=== PATIENT | male | born 1990 | race Asian ===

== ENCOUNTER 2017-10-17 09:55 | Observation (INO) | payer OTHER ==
--- NOTE | 2017-10-17 10:13 | EDPHY ---
H & P Stated Complaint: Injury RLE;sent from Time Seen by Provider: 10/17/17 10:13 HPI/ROS: CHIEF COMPLAINT: Right lower extremity injury HISTORY OF PRESENT ILLNESS: The patient presents to the ED for evaluation of right ankle pain and swelling as a result of a fall last night. The patient was seen at urgent care and diagnosed with a fracture. He was placed in a splint and sent here for further evaluation. The patient reports he last ate at 7 o'clock this morning. The patient denies any acute numbness or weakness. The patient denies additional injury. The patient denies significant past medical history. REVIEW OF SYSTEMS: A comprehensive 10 point review of systems is otherwise negative aside from elements mentioned in the history of present illness. Source: Patient Exam Limitations: No limitations - Personal History Current Tetanus Diphtheria and Acellular Pertussis (TDAP): Yes - Medical/Surgical History Other PMH: Past medical history: Noncontributory - Social History Smoking Status: Never smoked - Physical Exam Exam: General Appearance: Alert, no distress Eyes: Pupils equal and round no pallor or injection ENT, Mouth: Mucous membranes moist Respiratory: There are no retractions, lungs are clear to auscultation Cardiovascular: Regular rate and rhythm Gastrointestinal: Abdomen is soft and nontender, no masses, bowel sounds normal Neurological: GCS 15, intact motor function and sensory exam noted to the right lower extremity Skin: Mild ecchymosis, no obvious laceration Musculoskeletal: Neck is supple nontender Extremities: Tenderness, mild soft tissue swelling noted to the medial and lateral distal tib-fib area Constitutional: Initial Vital Signs Temperature (C) 36.9 C 10/17/17 09:58 Heart Rate 88 10/17/17 09:58 Respiratory Rate 16 10/17/17 09:58 Blood Pressure 127/82 H 10/17/17 09:58 O2 Sat (%) 96 10/17/17 09:58 O2 Delivery Mode Room Air Allergies/Adverse Reactions: No Known Allergies Allergy (Unverified 10/17/17 10:11) Home Medications: Medication Instructions Recorded NK [No Known Home Meds] 10/17/17 Medical Decision Making - Diagnostics Imaging Results: Imaging Impressions Ankle X-Ray 10/17/17 11:11 Impression: 1. Improved positioning of a spiral distal tibial diaphyseal fracture with one half shaft width residual lateral displacement and mild medial angulation. 2. Improved positioning of a mildly displaced distal fibular diametaphyseal fracture. 3. Stable nondisplaced posterior malleolar fracture. Right ankle x-ray: Images reviewed by myself, comminuted, displaced distal tib- fib fracture. ED Course/Re-evaluation: The patient presents to the ED with a displaced, spiral, distal tib-fib fracture without evidence of joint involvement. The patient arrives in a ortho glass splint from urgent care. The patient had an IV established. He received 2 L of normal saline and a total of 1 mg of Dilaudid. I consulted with the on-call orthopedic surgeon Dr. Lomeli. We did review his films. The patient ate breakfast at 7 o'clock this morning. He will be admitted to the hospital in anticipation of ORIF this evening. The patient was re-evaluated at 12:00 p.m. and is currently reporting his pain is adequately controlled. He is transferred to the med surg floor awaiting surgery. He will be admitted to the Orthopedic surgery service this evening. Differential Diagnosis: Differential diagnosis considered includes fracture, sprain, dislocation - Data Points Laboratory Results: Laboratory Results 10/17/17 10:30 10/17/17 10:30 10/17/17 10/17/17 10:30 10:30 WBC 10.27 10^3/uL H 10^3/uL (3.80-9.50) RBC 4.54 10^6/uL 10^6/uL (4.40-6.38) Hgb 14.7 g/dL g/dL (13.7-17.5) Hct 41.7 % % (40.0-51.0) MCV 91.9 fL fL (81.5-99.8) MCH 32.4 pg pg (27.9-34.1) MCHC 35.3 g/dL g/dL (32.4-36.7) RDW 11.9 % % (11.5-15.2) Plt Count 227 10^3/uL 10^3/uL (150-400) MPV 10.6 fL fL (8.7-11.7) Neut % (Auto) 78.5 % H % (39.3-74.2) Lymph % (Auto) 12.6 % L % (15.0-45.0) Beadle % (Auto) 8.4 % % (4.5-13.0) Eos % (Auto) 0.0 % L % (0.6-7.6) Baso % (Auto) 0.2 % L % (0.3-1.7) Nucleat RBC Rel Count 0.0 % % (0.0-0.2) Absolute Neuts (auto) 8.07 10^3/uL H 10^3/uL (1.70-6.50) Absolute Lymphs (auto) 1.29 10^3/uL 10^3/uL (1.00-3.00) Absolute Monos (auto) 0.86 10^3/uL H 10^3/uL (0.30-0.80) Absolute Eos (auto) 0.00 10^3/uL L 10^3/uL (0.03-0.40) Absolute Basos (auto) 0.02 10^3/uL 10^3/uL (0.02-0.10) Absolute Nucleated RBC 0.00 10^3/uL 10^3/uL (0-0.01) Immature Gran % 0.3 % % (0.0-1.1) Immature Gran # 0.03 10^3/uL 10^3/uL (0.00-0.10) Sodium 138 mEq/L mEq/L (135-145) Potassium 4.4 mEq/L mEq/L (3.5-5.2) Chloride 102 mEq/L mEq/L (97-110) Carbon Dioxide 21 mEq/l L mEq/l (22-31) Anion Gap 15 mEq/L mEq/L (8-16) BUN 10 mg/dL mg/dL (7-23) Creatinine 1.0 mg/dL mg/dL (0.7-1.3) Estimated GFR > 60 Glucose 98 mg/dL mg/dL (70-100) Calcium 10.0 mg/dL mg/dL (8.5-10.4) Medications Given: Discontinued Medications Hydromorphone HCl (Dilaudid) 0.5 mg IVP EDNOW ONE Stop: 10/17/17 10:33 Last Admin: 10/17/17 10:46 Dose: Not Given Hydromorphone HCl (Dilaudid) 0.5 mg IVP EDNOW ONE Stop: 02/24/18 10:46 Last Admin: 10/17/17 10:45 Dose: 0.5 mg Sodium Chloride (Ns) 1,000 mls @ 0 mls/hr IV EDNOW ONE; Wide Open PRN Reason: Protocol Stop: 10/17/17 10:33 Last Admin: 10/17/17 10:45 Dose: 1,000 mls Departure - Departure Disposition: [facility] In[facility] Acute Clinical Impression: Fracture of distal end of tibia Qualifiers: Encounter type: initial encounter Fracture type: closed Fracture morphology: other fracture Laterality: right Qualified Code(s): S82.391A - Other fracture of lower end of right tibia, initial encounter for closed fracture Fracture of distal fibula Qualifiers: Encounter type: initial encounter Fracture type: closed Fracture morphology: other fracture Laterality: right Qualified Code(s): S82.831A - Other fracture of upper and lower end of right fibula, initial encounter for closed fracture Condition: Good
[2017-10-17] MEDS ORDERED: HYDROmorphONE/DILAUDID 1 MG/ML INJ IVP ONE (10:32)
[2017-10-17] MEDS ORDERED: NS 1,000 ML IV ONE (10:32)
[2017-10-17] MEDS ORDERED: HYDROmorphONE/DILAUDID 2 MG/ML INJ IVP ONE (10:45)
[2017-10-17 11:49] LABS: PLATELET COUNT 227 10^3/uL (150-400)
[2017-10-17] MEDS ORDERED: ceFAZolin 2 GM/SWFI 2 GM/20 ML SYR IVP ONE (12:23)
[2017-10-17 13:00] LABS: INR 1.07 (0.83-1.16); PROTIME(PATIENT) 14.1 SEC (12.0-15.0)
--- NOTE | 2017-10-17 13:14 | GHP ---
[f rep st] PREOP HISTORY AND PHYSICAL DATE OF ADMISSION: 10/17/2017 CHIEF COMPLAINT: This 27-year-old male presents to the emergency department this morning with a right lower leg pain. HISTORY OF PRESENT ILLNESS: The patient states that he was walking on some ice near his apartment in [place] last night when he slipped forcefully, twisting his right lower leg. He was able to get inside and fall asleep, but did have a restless night of sleep due to pain. When he woke up this morning, it became apparent that there was a bit of a deformity to the lower leg, so a friend brought him to the emergency department this morning, where he presented for evaluation. The patient stated that in the emergency department, prior to pain medication being given, he was having some tingling of the toes, but described it as more of a throbbing, but this has since subsided after the pain medication was given. He did not have any other episodes of numbness or tingling of the toes. He denies any other joint pain or injury as a result of the fall. He did not hit his head and does not have any neck pain. The patient states that he last ate breakfast this morning at 7 o'clock, which consisted of some water and a breakfast burrito. PAST MEDICAL HISTORY: The patient states that he is otherwise healthy and denies any medical problems. PAST SURGICAL HISTORY: The patient has had no prior surgeries. MEDICATIONS: The patient takes a multivitamin daily. No other supplements or medications are taken. ALLERGIES: Patient has no known drug allergies. SOCIAL HISTORY: The patient lives in [place]. He is a nonsmoker. His sister lives in [place]. His parents travel regularly between the and [facility], and are currently in [place]. FAMILY HISTORY: The patient reports that both parents are very healthy. He states that he has a grandmother that may have had diabetes, but he is not sure. Otherwise, his family history is negative for any sort of clotting disorder or anesthesia reaction. REVIEW OF SYSTEMS: Patient denies any recent fevers, sweats, chills, headaches , congestion, coughing, shortness of breath, chest pain, abdominal pain, rashes , abrasions, lacerations, or any recent illnesses. Review of systems is otherwise negative except as mentioned above. PHYSICAL EXAM: GENERAL: Patient is alert, calm, cooperative, resting comfortably. No acute distress. Answering questions appropriately. VITAL SIGNS: Stable. HEENT: The patient's head is atraumatic and normocephalic. Extraocular movements are intact. Pupils are equal, round, reactive to light. Nares are patent. Hearing is grossly normal. Oral mucosa are moist. LUNGS: Respirations are easy and nonlabored. CARDIOVASCULAR: Distally, the patient has brisk and equal pulses in both upper and lower extremities bilaterally. He has brisk capillary refill in both upper and lower extremities as well. No upper or lower extremity edema is present throughout. GASTROINTESTINAL: The patient's abdomen is soft, nontender, with no masses, rigidity, or guarding present. NEUROLOGIC: Distally the patient's sensation is intact to both upper and lower extremities. He can move all digits without difficulty. SKIN: No rashes, lesions, abrasions, ecchymosis, warmth, redness or swelling is noted other than at the site of the injury. MUSCULOSKELETAL: Examination of the right lower leg does reveal some ecchymosis and swelling over the right lower leg just proximal to and around the ankle. There is no break in the skin and no tenting present. The patient does have tenderness to palpation at the distal tibia and fibula, which does extend into the ankle, but somewhat less than over the maximal area of swelling. Compartments are soft, no pain with active or passive stretch. The remainder of the musculoskeletal exam, including full left lower extremity and bilateral upper extremity musculoskeletal exam, is negative for any pain, swelling, or limits in range of motion. NECK: The patient has no cervical spine tenderness, step-off, deformities, or pain to palpate. He has full range of motion of the neck. Lhermitte's test is negative. Psych: A+Ox3. Appropriate mood and affect. DIAGNOSTIC DATA: X-rays of the right ankle and lower leg show a comminuted, displaced spiral distal tibial shaft fracture. There is a separate non- minimally displaced posterior malleolus fracture, and a comminuted Owusu B distal fibula fracture with significant displacement and angulation. IMPRESSION: Closed R distal tibia shaft fracture, and ankle fractures including a comminuted distal fibula fracture and posterior malleolus fracture. PLAN: The patient was placed in an Orthoglass splint in the emergency department, which he will remain in until he goes to the operating room at 3 o' clock this afternoon. The patient's preop history and physical was completed at the bedside by myself, and by Dr Lomeli. A signed and witnessed informed consent was obtained by Dr Lomeli, for surgical fixation of these multiple, unstable fractures. Pre-op labs and ankle/knee XRs pending. Bedrest, NWB RLE, ice and elevation, position of comfort. Keep NPO for surgery ASHVIN this afternoon. Please call with any questions. /[id number]/MODL MTDD
--- NOTE | 2017-10-17 13:15 | SOAPPROG ---
SOAP Progress Note Assessment/Plan: Assessment: 27M healthy, active w/ no medical comorbidities s/p fall on ice with closed RLE fractures, including distal tibial shaft and ankle fractures. Currently no sign of NV deficit or comp syndrome. NPO since 7am, therefore OK for surgery at 3pm. He is currently on the OR schedule for 3:15pm. Plan: OR as planned. Keep NPO. Cont splint RLE, ice/elevation, and strict NWB. Position of comfort. See full dictated consult by my PA, Hayde Larose for add'l information. 10/17/17 13:15 Subjective: 27yo M s/p slip and fall on ice yesterday. He is unable to bear weight and c/o pain, deformity and swelling RLE. No numb/tingling or other c/os. Denies any other injuries. Objective: Vital Signs Temp Pulse Resp BP Pulse Ox 36.9 C 85 16 155/95 H 95 10/17/17 12:22 10/17/17 12:22 10/17/17 12:22 10/17/17 12:22 10/17/17 12:22 10/16/17 10/17/17 10/18/17 05:59 05:59 05:59 Intake Total 1000 Balance 1000 PT 14.1 SEC (12.0-15.0) 10/17/17 12:40 INR 1.07 (0.83-1.16) 10/17/17 12:40 RLE edema, calor and ecchymosis, no erythema. Skin intact. Comp's soft, no pain with passive/active stretch. DNVI BLE's. No calf TTP, Osorio's unable to be performed. XRs: R tibial shaft spiral fx, distal 1/3 with significant displacement and angulation. R ankle fractures including displaced distal fibula and minimally displacd posterior malleolus of tibia. ICD10 Worksheet Patient Problems: Problems Problem Status Onset Fracture of distal end of tibia Acute Fracture of distal fibula Acute
--- NOTE | 2017-10-17 14:17 | ASMTCMCOM ---
CM Note CM Note Notes: Chart reviewed. 27 year old male admitted via ed for tib/fib fracture. OR this pm. Needs TBD. CM to follow. Date Signed: 10/17/2017 02:16 PM Electronically Signed By:Litzy Duran RN
[2017-10-17] MEDS ORDERED: fentaNYL 100 MCG/2 ML INJ ONE ×5 (14:51→19:48)
[2017-10-17] MEDS ORDERED: BUPIVACAINE/EPI 0.5% 30 ML SDV ONE ×2 (14:52→18:30)
--- NOTE | 2017-10-17 14:54 | PDANEPAE ---
ANE Past Medical History - Pulmonary History Hx Oxygen in Use at Home: No Hx Sleep Apnea: No Sleep Apnea Screening Result - Last Documented: Negative - Endocrine History Hx Diabetes: No ANE Review of Systems Review of Systems: ANE Patient History - Allergies Allergies/Adverse Reactions: No Known Allergies Allergy (Unverified 10/17/17 10:11) - Home Medications Home Medications: NK [No Known Home Meds] 10/17/17 [Last Taken Unknown] - NPO status NPO Since - Liquids (Date): 10/17/17 NPO Since - Liquids (Time): 07:00 NPO Since - Solids (Date): 10/17/17 NPO Since - Solids (Time): 12:23 - Smoking Hx Smoking Status: Never smoked TIA Labs/Vital Signs - Labs Result Diagrams: 10/17/17 10:30 10/17/17 10:30 - Vital Signs Blood Pressure: 155/95 Heart Rate: 85 Respiratory Rate: 16 O2 Sat (%): 95 Height: 182.88 cm Weight: 68.039 kg TIA Physical Exam - Airway Mallampati Score: Class 2 - ASA Status ASA Status: I ANE Anesthesia Plan Anesthesia Plan: GA w LMA
[2017-10-17] MEDS ORDERED: fentaNYL 100 MCG/2 ML INJ IVP ONE (14:55)
[2017-10-17] MEDS ORDERED: PROPOFOL 200 MG/20 ML VIAL ONE (15:05)
[2017-10-17] MEDS ORDERED: MIDAZOLAM 2 MG/2 ML VIAL ONE (15:05)
[2017-10-17] MEDS ORDERED: LIDOCAINE 2% JELLY 5 ML TUBE ONE (15:06)
[2017-10-17] MEDS ORDERED: METOCLOPRAMIDE 10 MG/2 ML VIAL ONE (15:06)
[2017-10-17] MEDS ORDERED: ONDANSETRON 4 MG/2 ML VIAL ONE ×2 (15:06→19:08)
[2017-10-17] MEDS ORDERED: HYDROGEN PEROXIDE 236 ML BOTTLE TP ONE (17:26)
[2017-10-17] MEDS ORDERED: LR 500 ML IV PRN (18:52)
[2017-10-17] MEDS ORDERED: fentaNYL 100 MCG/2 ML INJ IVP PRN (18:52)
[2017-10-17] MEDS ORDERED: NALOXONE HCL 0.4 MG/ML INJ IVP PRN (18:52)
[2017-10-17] MEDS ORDERED: HYDROmorphONE/DILAUDID 1 MG/ML INJ IVP PRN (18:52)
--- NOTE | 2017-10-17 18:53 | POSTANESTH ---
Post Anesthetic Evaluation Cardiovascular Status: Normal, Stable Respiratory Status: Normal, Stable Level of Consciousness/Mental Status: Can Participate in Eval Pain Control: Adequate, Prn Tx Ordered Nausea/Vomiting Control: Adequate, Prn Tx Ordered Complications Possibly Related to Anesthesia: None Noted
[2017-10-17] MEDS ORDERED: ACETAMINOPHEN 325 MG TAB PO PRN (19:00)
--- NOTE | 2017-10-17 19:23 | POSTOPPROG ---
Post Op Note Date of Operation: 10/17/17 Surgeon: Freeman Lomeli [employer] Manager: Hayde Larose Anesthesia: GET(General Endotracheal) Pre-op Diagnosis: Right Tibia and Fibula fractures-displaced Post-op Diagnosis: Right tibia and Fibula fractures-displaced Indication: unstable fractures Procedure: ORIF Right ankle fracture, IM Nail Right Tibia fracture Inf/Abcess present in the surg proc area at time of surgery?: No Depth: Deep Incisional (Fascial) EBL: 50-100 Complications: None
[2017-10-17] MEDS ORDERED: ONDANSETRON 4 MG/2 ML VIAL IVP ONE (19:30)
[2017-10-17] MEDS ORDERED: HYDROmorphONE/DILAUDID 2 MG/ML INJ ONE (19:49)
--- NOTE | 2017-10-17 20:10 | GOP ---
[f rep st] OPERATIVE REPORT DATE OF OPERATION: 10/17/2017 SURGEON: Freeman Lomeli MD CABLE BRAIDER: FRIEDA Lyles. ANESTHESIA: General. ANESTHESIOLOGIST: Dr. Bernstein. PREOPERATIVE DIAGNOSIS: 1. Closed right distal tibial shaft fracture. 2. Closed right ankle fractures, including posterior malleolus and distal fibula with comminution. POSTOPERATIVE DIAGNOSIS: 1. Closed right distal tibial shaft fracture. 2. Closed right ankle fractures, including posterior malleolus and distal fibula with significant comminution. 3. Closed right ankle anterior syndesmosis bony avulsion injury. PROCEDURE PERFORMED: 1. Right tibial shaft fracture reduction and surgical stabilization with intramedullary nail. 2. Open reduction, internal fixation of right ankle fractures, including posterior malleolus and distal fibula. 3. Open reduction and internal fixation with repair of right ankle anterior syndesmotic avulsion injury. FINDINGS: Long spiral and oblique fracture of the right distal tibial shaft, distal third. There was a nondisplaced posterior malleolus fracture that involved approximately 20% to 25% of the articular surface. Medial malleolus was intact. There was a highly comminuted right distal fibular, Owusu B fracture. The fibula fracture included avulsion of the anterior syndesmotic insertion point, dimensions of bony segment were 1 x 1 x 1.5 cm and syndesmotic ligaments were intact upon this segment. SPECIMENS: None. ESTIMATED BLOOD LOSS: 100 cc. INDICATIONS: This is a 27-year-old active male who apparently attempted to jump across a puddle and landed on ice resulting in a heavy twisting injury to his right leg and ankle. This occurred on October 16. The patient apparently waited overnight, eventually presented to an Urgent Care, and was then transferred to [facility] ER for multiple fractures of the right lower extremity. The risks, benefits, and alternatives to surgery were discussed with the patient. He understood that I recommended surgical fixation. He provided a signed and witnessed informed consent which was placed in his chart. Please see history and physical for additional information. All of his questions were answered prior to surgery. DESCRIPTION OF PROCEDURE: Patient was identified in the preop holding area, and his right lower extremity was signed and designated as the operative site. The patient was confirmed, and left lower extremity ALVIN hose and SCDs. He was taken back to the operating room and treated with 2 g IV prophylactic cefazolin. The patient underwent general anesthesia. Once his airway was stabilized, both arms were placed on well-padded arm boards. Left lower extremity was wrapped at the level of the proximal fibula, and heel and ankle with foam eggcrate padding. Right lower extremity was wrapped proximally with cast padding and a nonsterile tourniquet, and then prepped and draped in the usual sterile manner. The large C-arm was also prepped and draped in the usual sterile manner for use during surgery. Bone foam and bumps were placed under the right hip and right lower extremity, and placed beneath the drapes for positioning of the right leg for this surgery. Initial focus was on the gdx-mj-omqqwfvvn displaced posterior malleolus fracture. An bdemyjbp-ft-gfrudnlrg screw was considered necessary given that would be reaming down into this area, and I was worried about potentially displacing the posterior malleolar fragment. As a result, a small 1.5 cm incision was placed just medial to the tibialis anterior tendon. A full- thickness dermal incision was made with a #15 blade, and careful dissection was taken down through the subcutaneous tissues. The tendon was retracted medially. The anterior cortex of the distal tibia was identified. Using the C- arm with orthogonal views, a clamp was placed vpahrwwy-wx-lnuxqkcdi. A small stab incision was placed just medial to the Achilles tendon. Again, careful dissection and spreading were utilized down along the medial aspect of the Achilles tendon and directly down to the posterior aspect of the distal tibia. The clamp was placed down on bone through the spread tissues with the hemostat posteriorly, and then was advanced anteriorly down on the anterior aspect of the distal tibia just superior to the eventual drill point. Clamp was confirmed in the appropriate position, and with gentle torque on the clamp, an anatomic reduction was achieved on both AP and lateral views. With this in place, provisional fixation of single anteroposterior screw was then placed to fixate the posterior segment. Using a 2.5 mm drill, the start point was started somewhat medial and then advanced posteriorly and centrally. In this manner, I would be able to avoid the area of reaming and eventual nail placement. The drill hole was then overdrilled with a 3.5 mm drill out to approximately the depth of the fracture line. A standard fully-threaded cortical screw was then placed across the fracture site with very nice compression using standard AO technique. Once this was completed, the wound was irrigated with saline. The tibial nailing was performed via a suprapatellar approach. The knee was stably situated on the bone foam and with bumps, and appropriate imaging was confirmed with the large C-arm. Start point was found over the quad tendon just proximal to the patella, and a 3 cm incision was placed through the skin with a #10 blade. Careful dissection was taken down through the subcutaneous fat, and the quad tendon was identified. A new, fresh 10-blade was then used to divide the quad tendon in parallel with its fibers. This was made in a full- thickness manner. My finger was then used to bluntly dissect down into the joint, and the patella was found to be mobile and appropriate for this procedure. Using standard Synthes technique, the soft rubberized cannula was placed down across the patellofemoral joint, and the start point was accessed via standard suprapatellar technique. Both AP and lateral imaging was confirmed that the guidewire would be placed directly along the anterosuperior margin of the tibia on lateral view and along the medial aspect of the lateral tibial eminence. This guidewire was then placed down to the appropriate depth, and then was overdrilled through the cannula with the standard starter drill/ reamer. The guidewire and drill removed. The standard guidewire was then placed through the cannula, and via the suprapatellar pouch with a small distal tip bend, it was advanced down within the intramedullary canal. At the fracture site, I utilized my offset press assistant in order to maintain a reduction performed by me using closed technique, including rotation, bending, and traction. The guidewire was passed across the fracture and advanced down into the distal tibial plafond to the appropriate center-center position. Again, great care was taken to avoid any displacement of the posterior malleolus fracture. Reaming was then performed using standard technique through the cannula. Great care was taken to ensure that the cannula was maintained in place, i.e., past the articular portions of the knee and kept flush down to the tibial entry point. The reamers were sequentially increased to a total diameter of 12 mm when appropriate chatter was obtained. A 345 mm x 11 mm standard tibial nail from the Synthes set was then advanced across the knee joint down into the tibial canal and across the fracture site. Excellent anatomic reduction was achieved at the fracture site. It was malleted down to the appropriate depth, and then 2 distal interlocks from medial to lateral approach were placed. Each of these were placed using standard perfect gambell technique. Both interlocks were placed with excellent bicortical engagement. Once this was placed in position, I was simply able to with minimal traction on the distal segment, anatomically reduce and get excellent apposition at the fracture site. At this point, the nail was found to be ideal proximally, and therefore the 2 proximal interlock screws were again placed in a mediolateral manner using the standard jig. Once all interlocks were completed, finalized images were taken to assure appropriate hardware positioning. The most proximal interlock is a dynamic screw, and the distal proximal screw is a static screw. Both distal screws were static. Once this was completed, the jig and equipment were removed. A 5 mm cap was then placed in the proximal aspect of the nail using standard technique and cannulation device. This was tightened in the appropriate position. Once this was completed, all wounds were copiously irrigated with sterile saline, and my attention was then focused on the ankle. With direct palpation of the ankle, fracture site was found to be grossly unstable with significant crepitation. With external rotation stress view on mortise, the mortise opened, and the fracture displaced more significantly. The talus was notable for displacing laterally. As a result, ORIF of the fibula was then performed. Esmarch exsanguination was used to inflate the tourniquet to 250 mmHg. A standard lateral approach to the fibula was utilized. An 8 cm incision was placed directly over the lateral aspect of the fibula from the distal tip proximally. Over the distal 4 cm, full-thickness skin flaps were created down to bone. Proximally, careful dissection was used with the Metzenbaum scissors in order to assure no damage to the superficial peroneal nerve. The lateral aspect of the tibia was identified. There was a large segmental portion of the fracture anteriorly that was displaced within the soft tissues anterior in the anterior compartment. This was grasped and retracted posteriorly, and found to be the bony attachment site of the anterior syndesmosis. This was therefore irrigated and cleared of all soft tissues at the cancellous side of this fracture. The primary fracture section of the fracture was then debrided of all soft tissues, and retractors were placed. A dbuhi-wb-gdjfg reduction tenaculum was used to reduce the fracture and hold it in an appropriate position provisionally. An oqntrylw-yf-xyhfdmlbv oblique AO compression screw using standard interfragmentary compression technique was then placed across the fracture site. Next, a neutralization 7-hole, 1/3 tubular plate was placed laterally. Only 2 screws were able to be placed distally due to the distal nature of the fracture and comminution within the zone of injury. Proximally, 3 bicortical screws were placed. Both distal screws were cancellous. Excellent fixation was achieved throughout with this patient's excellent young bone. Finally, the anterior bony avulsion site of the syndesmosis was carefully reduced down into its kaibab site. Two #1 Vicryl sutures were placed around the fracture segment with great care taken to place the suture directly over bone and in a subperiosteal manner. The more inferior suture was placed through the zone of comminution, and within one of the empty screw holes, the more proximal suture lasso was prepped placed entirely around the fibula with great care taken to maintain the tip of the needle on bone as it was passed around the fibula. With the sutures in place, the exraz-qp-xrayn reduction tenaculum was then used to reduce the fracture segment down into its anatomic site. With this segment compressed, both cerclage sutures were then tied by me and cut at the level of knot. An appropriate reduction and/or fixation was achieved at the level of this bony avulsion site. Once the work was completed at the fibula, the wound was copiously irrigated with sterile saline. Closure was now begun throughout the lower extremity. The quad tendon was closed with multiple 0 Vicryl sutures in a quzk-ib-evzv manner. The deep fat space was closed with multiple 2-0 Vicryl sutures. 2-0 Vicryl deep dermal sutures were used to reapproximate the skin, and then ernst were used to close the skin. All the percutaneous incisions were closed with ernst only. The kgxyukhz-iz-dylxzvrry distal tibial screw incision site was also closed with 3-0 Monocryl in a deep dermal manner, and then ernst. The lateral ankle incision was closed with multiple 2-0 Vicryl sutures at the level of the periosteal layer. Deep dermal layer was closed with 3-0 Monocryl. The skin was then formally closed with ernst. Tourniquet was dropped prior to closure of the skin. Excellent hemostasis was confirmed throughout. Sterile postoperative surgical dressings were applied throughout the wounds after anesthetizing all the wounds at the level of the skin with local anesthetic. An Omari bandage was wrapped from the toes to the mid thigh. The right lower extremity was placed in a CAM walker boot. The anesthesia service took over to wake the patient up. TOURNIQUET TIME: 48 minutes at 250 mmHg. DRAINS: None. IMPLANTS: Synthes EX intramedullary nail via suprapatellar approach. Nail dimensions 11 mm x 345 mm. Two distal static interlock screws. Two proximal interlock screws with the more proximal in a dynamic position, more distal in a static position. Synthes small fragment 7-hole, 1/3 tubular plate with 5 small frag screws placed through the plate as well as an dfuadoal-jr-pjnzbzyjd additional 6th screw in an AO interfragmentary compression manner. There was an additional 3.5 screw placed in fmbfjdhe-cy-yxpgctout direction within the distal tibia at the level of the articular surface, fixing the posterior malleolus fracture via AO compression technique. COMPLICATIONS: None. DISPOSITION: The patient was extubated and transferred to PACU in stable condition. /[id number]/MODL MTDD
[2017-10-17] MEDS ORDERED: ceFAZolin 2 GM/DEXTROSE 100 ML IV SCH (22:00)
[2017-10-17] MEDS ORDERED: ceFAZolin 2 GM/SWFI 2 GM/20 ML SYR IVP SCH (23:30)
[2017-10-17] MEDS: OXYCODONE/APAP 5/325 TAB PO PRN (23:59)
[2017-10-18] MEDS: OXYCODONE/APAP 5/325 TAB PO PRN ×3 (03:45→12:05)
[2017-10-18] MEDS ORDERED: CYCLOBENZAPRINE 10 MG TAB PO SCH ×2 (04:13→09:00)
[2017-10-18] MEDS ORDERED: ONDANSETRON DISINTEGRATING 4 MG TAB PO PRN (04:14)
[2017-10-18] MEDS ORDERED: ENOXAPARIN 40 MG/0.4 ML SYR SC SCH (09:00)
[2017-10-18 12:36] VITALS: BP 135/86; PULSE 80; RESP 12; TEMP 98.6; O2SAT 93
--- NOTE | 2017-10-18 13:22 | ASMTLACE ---
KAYLYN Length of stay for Answers: 1 day current admission Acuity / Level of Answers: No Care: Did the patient have an inpatient admission? # of Emergency department Answers: 1-2 visits in the last 6 months Score: 2 Date Signed: 10/18/2017 01:21 PM Electronically Signed By:Litzy Duran RN
--- NOTE | 2017-10-18 13:30 | ASMTCMCOM ---
CM Note CM Note Notes: Patient has been medically cleared for discharge to home with outpatient therapy. He lives in apartment second floor. Per PT able to negotiate stairs after instruction. His family is flying into town to assist him with care. Plan of care is to dc home independent with support and outpatient therapy when medically cleared. CM available to assist should needs arise. Date Signed: 10/18/2017 01:29 PM Electronically Signed By:Litzy Duran RN
--- NOTE | 2017-10-18 13:55 | SOAPPROG ---
SOAP Progress Note Assessment/Plan: Assessment:POD#1 s/p: IM nail for distal tibia shaft fracture. ORIF distal fibula fracture. Plan: -Dressing was changed by me today. - Pt. has been seen by OT, was shown how to use crutches and remain NWB in boot. He would like to go home today. He has friends coming this afternoon who will help him get his prescriptions picked up and get him settled in his house. He will take the week off of work so that he can elevate and rest his leg. -Elevate -Ice -remain NWB on crutches and in boot -Continue Enoxaparin 40 mg SC for 13 more days, will be instructed on use by RN prior to D/C. -Rx for Percocet, Flexeril and Aspirin were given to pt. Dates for aspirin use were written on rx (he understands that he will not start this until done with Enoxaparin). -Schedule F/U appt. with Dr. Lomeli in 9 days. -Call office immediately for numbness, change in color, increased pain or swelling, fever, any other concerns. Subjective:Pt. is doing well with current oral pain management plan. When pain breaks through it is about a 6-7/10, but 2-3 when controlled. He describes it as a throbbing of the lower leg from the knee to the ankle. He seems to be best controlled when taking both Percocet and Flexeril. He has been in his boot and icing. No N/T of the toes, no LLE pain, swelling, N/T either. NO fevers, CP, SOB, N/V. Objective: Pt. alert, answering questions appropriately. In NAD. Respirations easy, unlabored. Distally he is NVI in the LLE. He has normal capillary refill and sensation to all toes in the RLE. He has swelling around the ankle and mildly at the calf as well, but compartments are soft upon my exam. Incisions are all intact, with no redness, warmth or purulent discharge. The was some dried blood on the dressings covering the lower, medial incisions. 10/18/17 13:44 Objective: Vital Signs Temp Pulse Resp BP Pulse Ox 37.0 C 80 12 135/86 H 93 10/18/17 12:00 10/18/17 12:00 10/18/17 12:00 10/18/17 12:00 10/18/17 12:00 10/17/17 10/18/17 10/19/17 05:59 05:59 05:59 Intake Total 2940 Output Total 1550 Balance 1390 PT 14.1 SEC (12.0-15.0) 10/17/17 12:40 INR 1.07 (0.83-1.16) 10/17/17 12:40 ICD10 Worksheet Patient Problems: Problems Problem Status Onset Fracture of distal end of tibia Acute Fracture of distal fibula Acute
--- NOTE | 2017-10-18 13:59 | SOAPPROG ---
SOAP Progress Note Assessment/Plan: Assessment: Doing well POD 1 s/p R tib IMN and ORIF R ankle with syndes repair. Plan: TDWB RLE in boot, ice/elevation prn. Enox 40 SQ daily x 13 add'l days, then ECASA 325 daily x 2 wks. PO analgesics prn. Keep wounds clean/dry. Will complete proph IV abx today, then may d/c home. F/u with me in clinic in 10-12 days for staple removal, new XRs and cont'd care. Call with any questions. 10/18/17 13:56 Subjective: Doing well, pain well controlled, no N/T. Denies any other new symptoms or signs of additional injury. Objective: Vital Signs Temp Pulse Resp BP Pulse Ox 37.0 C 80 12 135/86 H 93 10/18/17 12:00 10/18/17 12:00 10/18/17 12:00 10/18/17 12:00 10/18/17 12:00 10/17/17 10/18/17 10/19/17 05:59 05:59 05:59 Intake Total 2940 Output Total 1550 Balance 1390 PT 14.1 SEC (12.0-15.0) 10/17/17 12:40 INR 1.07 (0.83-1.16) 10/17/17 12:40 RLE in boot and new dsgs applied by my PAPete. C/D/I. Comp's soft. No pain with passive stretch or active ROM of toes. DNVI BLEs. Post-op XRs: HW in appropriate position throughout. Excellent alignment of all fractures. ICD10 Worksheet Patient Problems: Problems Problem Status Onset Fracture of distal end of tibia Acute Fracture of distal fibula Acute
--- NOTE | 2017-10-18 16:13 | BDS ---
[f rep st] MED/SURG DISCHARGE SUMMARY PREOPERATIVE DIAGNOSES: 1. Closed right distal tibial shaft fracture. 2. Closed right ankle fractures, including posterior malleolus and distal fibula with comminution. POSTOPERATIVE DIAGNOSES: 1. Closed right distal tibial shaft fracture. 2. Closed right ankle fractures, including posterior malleolus and distal fibula with significant comminution. 3. Closed right ankle anterior syndesmosis bony avulsion injury. PROCEDURE PERFORMED: 1. Right tibial shaft fracture reduction and surgical stabilization with intramedullary nail. 2. Open reduction, internal fixation of right ankle fractures, including posterior malleolus and distal fibula. 3. Open reduction and internal fixation with repair of right ankle anterior syndesmotic avulsion injury. HISTORY OF PRESENT ILLNESS: This 27-year-old male was admitted through the Emergency Department on 10/17/2017, after slipping on some ice on 10/16/2017, and twisting his right ankle. He went to sleep that night, and when he woke up his ankle was quite a bit worse, therefore presented to the emergency department , where the above-mentioned fractures were found. The patient was then admitted to Orthopedics and taken to surgery later that afternoon after full n.p.o. status had been achieved. The patient did well through the surgery with no complications. HOSPITAL COURSE: The patient was admitted, placed on cefazolin for antibiotic measure, and taken to the operating room on 10/17/2017, whereupon he underwent a right tibial shaft fracture reduction and stabilization with an intramedullary nail, as well as an ORIF of his right ankle fractures, and ORIF of his right ankle anterior syndesmotic avulsion injury. This was performed by Dr. Lomeli. There were no intraoperative complications. Postoperative treatment for VTE prophylaxis includes mechanical prophylaxis with ALVIN hose and SCDs, as well as enoxaparin for VTE chemoprophylaxis. His incisions appear to be healing well at the time of his discharge, and his hospital stay was otherwise uneventful. DISCHARGE INSTRUCTIONS: The patient was advised to call to schedule an appointment to follow up with Dr. Lomeli in 10-14 days for staple removal. The patient will be filling his prescriptions upon discharge from the hospital and using those as advised. He will continue to ice, elevate, remain in the boot, and ambulate with crutches, and to be nonweightbearing on the right lower extremity until further advised. He will call our office immediately if he develops any fevers, increased pain, numbness or tingling of the toes, as well as any color or temperature change. MEDICATIONS: Upon discharge include: Percocet to be taken 1-2 p.o. every 4-6 hours as needed for pain. He was also given a prescription for Flexeril, as he was having significant muscle cramping in the leg. This is to be taken 1 p.o. t.i.d. daily p.r.n. muscle spasm. He was also given a prescription for enoxaparin 40 mg to be used 1 dose subcu everyday for the next 13 days. At that point, he will start taking aspirin 325 mg p.o. daily x14 days. He understands to start the aspirin the day after he finishes the enoxaparin. The patient is also to resume any preoperative medications at his prescribed dose. /[id number]/MODL MTDD
== END 2017-10-18 14:59 | disposition home or self-care (01) ==
LOC: F3N 11:52
PROVIDERS: ADMIT Orthopaedic Surgery; ATTEND Orthopaedic Surgery
PROC: 0QSJ04Z Reposition Right Fibula with Internal Fixation Device, Open Approach (ICD-10-PCS; principal; 2017-10-17 15:00)
PROC: 0QSG04Z Reposition Right Tibia with Internal Fixation Device, Open Approach (ICD-10-PCS; principal; 2017-10-17 15:00)
DX: S82.391A Other fracture of lower end of right tibia, initial encounter for closed fracture (principal); S82.831A Other fracture of upper and lower end of right fibula, initial encounter for closed fracture
CPT/HCPCS: 27535; 27792; 73562; 73590; 73610; 76001; 97116; 97161; 97165; 97530; 97535; C1769; G0378; 96374; C1713; J0690; J1170; J1650; J2250; J2270; J2405; J2704; J2765; J3010